=== PATIENT | female | born 1935 | race Two or more races ===

== ENCOUNTER → 2016-10-20 | Outpatient (CLI) | payer MEDICARE, MEDICAID ==
[~2016-10-20] MED LIST: AMLO5TAB2 PO; ANAS1TAB6 PO; ASPI-231 PO; BUME1TAB PO; CHOL1000 PO; CHOL100011 PO; CHOL10009 PO; DEXL60CA3 PO; DIPH2.5T73 PO; GLIP-115 PO; LINA5TAB PO; MEGE40SU PO; METO25TA5 PO; NITR0.2D12 TD; TEMA15CA PO
[2016-10-20 12:09] LABS: Basophils # (auto) 0.1 uL; Basophils % (auto) 0.7 % (0.0-2.0); DEFINITIVE VIEW TRANSMISSION; Eosinophils # (auto) 0.2 uL; Eosinophils % (auto) 2.1 % (0.0-7.0); Hematocrit 35.5 % (36.0-46.0); Hemoglobin 11.3 g/dL (12.2-16.2); Lymphocytes # (auto) 1.7 uL; Lymphocytes % (auto) 17.2 % (10.0-50.0); Mean Corpuscular Hemoglobin 26.3 pg (28.0-32.0); Mean Corpuscular Hgb Conc. 31.7 g/dL (32.0-36.0); Mean Platelet Volume 10.3 fL (7.4-10.4); Monocytes % (auto) 9.8 % (0.0-12.0); Neutrophils # (auto) 6.9 uL; Neutrophils % (auto) 70.2 % (37.0-80.0); Platelet Count (auto) 286 10^3/uL (140-450); White Blood Cell 9.8 10^3/uL (4.4-10.8)
== END | disposition home or self-care (01) ==
LOC: LAB 11:32
PROVIDERS: ATTEND Internal Medicine
DX: D64.89 Other specified anemias (principal); C50.912 Malignant neoplasm of unspecified site of left female breast
CPT/HCPCS: 36415; 85025; 85049

== ENCOUNTER → 2016-11-03 | Outpatient (CLI) | payer MEDICARE, MEDICAID ==
[2016-11-03 14:11] LABS: Basophils # (auto) 0 uL; Basophils % (auto) 0.3 % (0.0-2.0); DEFINITIVE VIEW TRANSMISSION; Eosinophils # (auto) 0.3 uL; Eosinophils % (auto) 2.7 % (0.0-7.0); Hematocrit 30.5 % (36.0-46.0); Hemoglobin 9.6 g/dL (12.2-16.2); Lymphocytes # (auto) 1.7 uL; Lymphocytes % (auto) 17.3 % (10.0-50.0); Mean Corpuscular Hemoglobin 26.4 pg (28.0-32.0); Mean Corpuscular Hgb Conc. 31.4 g/dL (32.0-36.0); Mean Corpuscular Volume 84.2 fL (80.0-100.0); Mean Platelet Volume 10.4 fL (7.4-10.4); Monocytes # (auto) 0.9 uL; Monocytes % (auto) 9.1 % (0.0-12.0); Neutrophils # (auto) 7.1 uL; Neutrophils % (auto) 70.6 % (37.0-80.0); Platelet Count (auto) 227 10^3/uL (140-450); Red Cell Distribution Width 19.8 % (11.6-16.0); White Blood Cell 10.1 10^3/uL (4.4-10.8)
== END | disposition home or self-care (01) ==
LOC: LAB 13:43
PROVIDERS: ATTEND Internal Medicine
DX: D64.89 Other specified anemias (principal); C50.912 Malignant neoplasm of unspecified site of left female breast
CPT/HCPCS: 36415; 85025

== ENCOUNTER → 2016-11-17 | Outpatient (CLI) | payer MEDICARE, MEDICAID ==
[2016-11-17 11:46] LABS: Basophils # (auto) 0 uL; Basophils % (auto) 0.6 % (0.0-2.0); DEFINITIVE VIEW TRANSMISSION; Eosinophils # (auto) 0.3 uL; Eosinophils % (auto) 3.3 % (0.0-7.0); Hematocrit 20.6 % (36.0-46.0); Lymphocytes # (auto) 1.5 uL; Lymphocytes % (auto) 19.2 % (10.0-50.0); Mean Corpuscular Hemoglobin 27.4 pg (28.0-32.0); Mean Corpuscular Hgb Conc. 31.7 g/dL (32.0-36.0); Mean Corpuscular Volume 86.5 fL (80.0-100.0); Mean Platelet Volume 9.3 fL (7.4-10.4); Monocytes # (auto) 0.8 uL; Monocytes % (auto) 10.8 % (0.0-12.0); Neutrophils # (auto) 5.1 uL; Neutrophils % (auto) 66.1 % (37.0-80.0); Platelet Count (auto) 252 10^3/uL (140-450); Red Cell Distribution Width 18.3 % (11.6-16.0); White Blood Cell 7.7 10^3/uL (4.4-10.8)
[2016-11-17 11:51] LABS: Hemoglobin 6.5 g/dL (12.2-16.2)
[2016-11-17 14:56] LABS: Albumin 2.9 g/dL (3.4-5.0); BUN/Creatinine Ratio 27.8; Phosphorus 3.5 mg/dL (2.5-4.90); Potassium 4.9 mmol/L (3.5-5.1)
== END | disposition home or self-care (01) ==
LOC: LAB 09:55
PROVIDERS: ATTEND Internal Medicine
DX: N18.3 Chronic kidney disease, stage 3 (moderate) (principal); D63.1 Anemia in chronic kidney disease; M10.9 Gout, unspecified; R80.9 Proteinuria, unspecified
CPT/HCPCS: 36415; 80069; 82306; 85025

== ENCOUNTER → 2016-11-18 | Outpatient (CLI) | payer MEDICARE, MEDICAID | END | disposition home or self-care (01) | LOC: LAB 11:03 | PROVIDERS: ATTEND Internal Medicine | DX: D64.89 Other specified anemias (principal); C50.912 Malignant neoplasm of unspecified site of left female breast | CPT/HCPCS: 86850; 86900; 86901; 86922 ==

== ENCOUNTER → 2016-11-21 | Day surgery (SDC) | payer MEDICARE, MEDICAID ==
[~2016-11-21] VITALS: Ht 30.5 cm; Wt 0.5 kg
[~2016-11-21] MED LIST changes: +FUROSEMIDE 20 MG/2 ML VIAL IV ONE; +FUROSEMIDE 20 MG/2 ML VIAL ONE
== END | disposition home or self-care (01) ==
LOC: CATH 07:21
PROVIDERS: ATTEND Internal Medicine
DX: D64.9 Anemia, unspecified (principal); I50.9 Heart failure, unspecified; Z90.710 Acquired absence of both cervix and uterus; F41.9 Anxiety disorder, unspecified
CPT/HCPCS: 36430

== ENCOUNTER → 2016-12-01 | Outpatient (CLI) | payer MEDICARE, MEDICAID ==
[~2016-12-01] MED LIST changes: -FUROSEMIDE 20 MG/2 ML VIAL IV ONE; -FUROSEMIDE 20 MG/2 ML VIAL ONE
[2016-12-01 10:01] LABS: Basophils # (auto) 0.1 uL; DEFINITIVE VIEW TRANSMISSION; Eosinophils # (auto) 0 uL; Eosinophils % (auto) 0.3 % (0.0-7.0); Hematocrit 21.5 % (36.0-46.0); Hemoglobin 7.2 g/dL (12.2-16.2); Lymphocytes # (auto) 1.5 uL; Lymphocytes % (auto) 15.6 % (10.0-50.0); Mean Corpuscular Hemoglobin 28.7 pg (28.0-32.0); Mean Corpuscular Hgb Conc. 33.4 g/dL (32.0-36.0); Mean Platelet Volume 10.1 fL (7.4-10.4); Monocytes # (auto) 0.9 uL; Neutrophils # (auto) 6.9 uL; Neutrophils % (auto) 73.1 % (37.0-80.0); Platelet Count (auto) 258 10^3/uL (140-450); Red Cell Distribution Width 16.4 % (11.6-16.0); White Blood Cell 9.4 10^3/uL (4.4-10.8)
[2016-12-01 10:56] LABS: Bilirubin, Total 0.3 mg/dL (0.2-1.0); Calcium 9.2 mg/dL (8.5-10.1); Total Protein 6.5 g/dL (6.4-8.2)
== END | disposition home or self-care (01) ==
LOC: LAB 09:31
PROVIDERS: ATTEND Internal Medicine
DX: D64.9 Anemia, unspecified (principal); C50.912 Malignant neoplasm of unspecified site of left female breast
CPT/HCPCS: 36415; 80053; 83615; 85025

== ENCOUNTER → 2017-01-03 | Outpatient (CLI) | payer MEDICARE, MEDICAID ==
[~2017-01-03] MED LIST changes: -BUME1TAB PO; -CHOL1000 PO; -CHOL100011 PO; -DIPH2.5T73 PO
[2017-01-03 11:56] LABS: Basophils # (auto) 0.1 uL; Basophils % (auto) 0.8 % (0.0-2.0); DEFINITIVE VIEW TRANSMISSION; Eosinophils # (auto) 0.3 uL; Eosinophils % (auto) 4.2 % (0.0-7.0); Lymphocytes # (auto) 1.4 uL; Lymphocytes % (auto) 20.4 % (10.0-50.0); Mean Corpuscular Hemoglobin 28.4 pg (28.0-32.0); Mean Corpuscular Hgb Conc. 33.1 g/dL (32.0-36.0); Mean Corpuscular Volume 85.8 fL (80.0-100.0); Mean Platelet Volume 10.2 fL (7.4-10.4); Monocytes # (auto) 0.7 uL; Monocytes % (auto) 10.4 % (0.0-12.0); Neutrophils # (auto) 4.5 uL; Neutrophils % (auto) 64.2 % (37.0-80.0); Platelet Count (auto) 263 10^3/uL (140-450); Red Cell Distribution Width 15.6 % (11.6-16.0); White Blood Cell 6.9 10^3/uL (4.4-10.8)
[2017-01-03 11:58] LABS: Urine Bilirubin Negative (Negative); Urine Blood Negative /uL (Negative); Urine Color Yellow (Yellow); Urine Glucose TRACE mg/dL (Normal); Urine Ketone Negative (Negative); Urine Nitrite Negative (Negative); Urine RBC <1 /hpf (0 - 4); Urine Squamous Epithelial Cell FEW /hpf (<5); Urine Urobilinogen Normal (Negative); Urine pH 5.5 (5.0-8.0)
[2017-01-03 12:14] LABS: Albumin 2.9 g/dL (3.4-5.0); BUN/Creatinine Ratio 30.3; Bilirubin, Total 0.3 mg/dL (0.2-1.0); Calcium 8.6 mg/dL (8.5-10.1); Potassium 4.2 mmol/L (3.5-5.1); Total Protein 6.8 g/dL (6.4-8.2)
[2017-01-03 14:11] LABS: Hemoglobin 6.6 g/dL (12.2-16.2)
== END | disposition home or self-care (01) ==
LOC: LAB 10:54
DX: E55.9 Vitamin D deficiency, unspecified (principal); E11.21 Type 2 diabetes mellitus with diabetic nephropathy
CPT/HCPCS: 36415; 80053; 80061; 81001; 82043; 82306; 83036; 84443; 85025

== ENCOUNTER → 2017-01-13 | Outpatient (CLI) | payer MEDICARE, MEDICAID ==
[~2017-01-13] MED LIST changes: +BUME1TAB PO; +DIPH2.5T73 PO; +FURO20TA3 PO; +LOSA25TA9 PO
[2017-01-13 13:48] LABS: Basophils # (auto) 0 uL; Basophils % (auto) 0.5 % (0.0-2.0); DEFINITIVE VIEW TRANSMISSION; Eosinophils # (auto) 0.2 uL; Eosinophils % (auto) 3.1 % (0.0-7.0); Hematocrit 19.2 % (36.0-46.0); Lymphocytes # (auto) 1.3 uL; Lymphocytes % (auto) 20.1 % (10.0-50.0); Mean Corpuscular Hemoglobin 29.6 pg (28.0-32.0); Mean Corpuscular Hgb Conc. 33.3 g/dL (32.0-36.0); Mean Corpuscular Volume 88.9 fL (80.0-100.0); Mean Platelet Volume 10.1 fL (7.4-10.4); Monocytes # (auto) 0.7 uL; Monocytes % (auto) 11.1 % (0.0-12.0); Neutrophils # (auto) 4.3 uL; Neutrophils % (auto) 65.2 % (37.0-80.0); Platelet Count (auto) 205 10^3/uL (140-450); Red Cell Distribution Width 17.6 % (11.6-16.0); White Blood Cell 6.6 10^3/uL (4.4-10.8)
[2017-01-13 14:18] LABS: Hemoglobin 6.4 g/dL (12.2-16.2)
[2017-01-13 14:40] LABS: Albumin 2.9 g/dL (3.4-5.0); BUN/Creatinine Ratio 28.4; Bilirubin, Total 0.3 mg/dL (0.2-1.0); Calcium 8.5 mg/dL (8.5-10.1); Total Protein 6.4 g/dL (6.4-8.2)
[2017-01-13 15:03] LABS: Potassium 6.1 mmol/L (3.5-5.1)
== END | disposition home or self-care (01) ==
LOC: LAB 13:20
DX: D64.89 Other specified anemias (principal); C50.912 Malignant neoplasm of unspecified site of left female breast
CPT/HCPCS: 36415; 80053; 83615; 85025

== ENCOUNTER → 2017-01-26 | Outpatient (CLI) | payer MEDICARE, MEDICAID ==
[2017-01-26 13:44] LABS: Basophils # (auto) 0.1 uL; DEFINITIVE VIEW TRANSMISSION; Eosinophils # (auto) 0.1 uL; Eosinophils % (auto) 2.3 % (0.0-7.0); Hematocrit 18.2 % (36.0-46.0); Lymphocytes # (auto) 1.3 uL; Lymphocytes % (auto) 20.1 % (10.0-50.0); Mean Corpuscular Hemoglobin 29.3 pg (28.0-32.0); Mean Corpuscular Volume 88.7 fL (80.0-100.0); Mean Platelet Volume 9.1 fL (7.4-10.4); Monocytes # (auto) 0.7 uL; Monocytes % (auto) 10.5 % (0.0-12.0); Neutrophils # (auto) 4.2 uL; Neutrophils % (auto) 66.1 % (37.0-80.0); Platelet Count (auto) 240 10^3/uL (140-450); Red Cell Distribution Width 18.3 % (11.6-16.0); White Blood Cell 6.4 10^3/uL (4.4-10.8)
[2017-01-26 13:59] LABS: Albumin 2.9 g/dL (3.4-5.0); BUN/Creatinine Ratio 30.9; Bilirubin, Total 0.2 mg/dL (0.2-1.0); Calcium 8.7 mg/dL (8.5-10.1); Potassium 4.7 mmol/L (3.5-5.1); Total Protein 6.4 g/dL (6.4-8.2)
== END | disposition home or self-care (01) ==
LOC: LAB 13:23
PROVIDERS: ATTEND Internal Medicine
DX: D64.89 Other specified anemias (principal); C50.912 Malignant neoplasm of unspecified site of left female breast
CPT/HCPCS: 36415; 80053; 83615; 85025

== ENCOUNTER 2017-07-07 10:38 | Inpatient (IN) | payer MEDICARE, MEDICAID ==
[~2017-07-07] VITALS: Ht 165.1 cm; Wt 82.8 kg
[2017-07-07] VITALS (21 sets, daily range): BP systolic 98–149; BP diastolic 43–68
[~2017-07-07 10:38] MED LIST changes: -NITR0.2D12 TD
[2017-07-07 12:22] LABS: White Blood Cell 7.6 10^3/uL (4.4-10.8)
[2017-07-07 12:24] LABS: Basophils # (auto) 0.1 uL; Basophils % (auto) 1.3 % (0.0-2.0); Eosinophils # (auto) 0.1 uL; Eosinophils % (auto) 0.9 % (0.0-7.0); Lymphocytes # (auto) 0.7 uL; Monocytes # (auto) 0.7 uL; Monocytes % (auto) 9.1 % (0.0-12.0); Neutrophils # (auto) 6.1 uL; Neutrophils % (auto) 79.7 % (37.0-80.0)
[2017-07-07 12:25] LABS: Hemoglobin 5.4 g/dL (12.2-16.2); Mean Corpuscular Hemoglobin 27.3 pg (28.0-32.0); Mean Corpuscular Hgb Conc. 31.6 g/dL (32.0-36.0); Mean Corpuscular Volume 86.4 fL (80.0-100.0); Mean Platelet Volume 8.8 fL (6.9-10.8); Platelet Count (auto) 199 10^3/uL (140-450); Red Cell Distribution Width 21.2 % (11.8-14.3)
[2017-07-07] MEDS ORDERED: ACETAMINOPHEN 500 MG TAB PO ONE (12:30)
[2017-07-07 13:11] LABS: INR 1.02 (0.9-1.15); Partial Thromboplastin Time 26.8 sec (22.64-33.71); Prothrombin Time 11.1 sec (9.37-12.3)
[2017-07-07 13:37] LABS: Albumin 3.1 g/dL (3.4-5.0); BUN/Creatinine Ratio 48.7; Bilirubin, Total 0.2 mg/dL (0.2-1.0); Calcium 8.2 mg/dL (8.5-10.1); Total Protein 6.6 g/dL (6.4-8.2)
[2017-07-07 13:40] LABS: Potassium 5.6 mmol/L (3.5-5.1)
[2017-07-07] MEDS ORDERED: DIPHENOXYLATE W/ATROPINE 2.5 MG TAB PO PRN (13:45)
[2017-07-07] MEDS ORDERED: DEXTROSE (50%) 50ML SYRG IV PRN (13:45)
[2017-07-07] MEDS ORDERED: ACETAMINOPHEN 500 MG TAB PO PRN (13:45)
[2017-07-07] MEDS ORDERED: HYDROcodone-ACET 5/325MG TAB PO PRN (13:45)
[2017-07-07] MEDS ORDERED: MORPHINE SULF INJ 2 MG/ML SYRINGE 1ML IV PRN ×2 (13:45)
[2017-07-07] MEDS ORDERED: NITROGLYCERIN 0.4 MG SL TAB SL PRN (13:45)
[2017-07-07] MEDS ORDERED: LORazepam 0.5 MG TAB PO PRN (13:45)
[2017-07-07] MEDS ORDERED: ALBUTEROL SULF 2.5 MG/0.5ML(0.5%) NEB SOLN NEB PRN (13:45)
[2017-07-07] MEDS ORDERED: FUROSEMIDE 40 MG/4 ML VIAL IV PRN (13:45)
[2017-07-07] MEDS ORDERED: PROMETHAZINE HCL 25 MG/ML 1ML IV PRN (13:45)
[2017-07-07] MEDS ORDERED: PANTOPRAZOLE 40 MG/10 ML VIAL IV ONE (13:45)
[2017-07-07] MEDS ORDERED: LACTULOSE 20Gm/30ML SOLN PO PRN (13:45)
[2017-07-07] MEDS ORDERED: InsuLIN REG 1unit/0.01ml Soln (100units/ml) IV ONE (14:00)
[2017-07-07] MEDS ORDERED: CALCIUM GLUC 4.65meq/50ml D5AE 50 ML IV ONE (14:00)
[2017-07-07] MEDS ORDERED: DEXTROSE (50%) 50ML SYRG IV ONE (14:00)
[2017-07-07] MEDS ORDERED: SODIUM BICARBONATE 8.4 % INJ 50ML VIAL IV ONE (14:00)
[2017-07-07 14:20] LABS: Anisocytosis Slight; Platelet Estimate Adequate
[2017-07-07 14:21] LABS: Ovalocytes FEW; Schistocytes FEW
[2017-07-07 15:12] LABS: Urine Bilirubin Negative (Negative); Urine Blood Negative /uL (Negative); Urine Color Yellow (Yellow); Urine Glucose Normal (Normal); Urine Ketone Negative (Negative); Urine Mucus FEW (None Seen); Urine Nitrite Negative (Negative); Urine RBC None Seen /hpf (0 - 4); Urine Squamous Epithelial Cell FEW /hpf (<5); Urine Urobilinogen Normal (Negative)
[2017-07-07] MEDS ORDERED: FUROSEMIDE 40 MG/4 ML VIAL IV ONE (15:15)
[2017-07-07] MEDS ORDERED: SODIUM POLYSTYRENE SULF 15GM/60ML SUSP PO ONE (15:30)
[2017-07-07] MEDS: ALBUTEROL SULF 2.5 MG/0.5ML(0.5%) NEB SOLN NEB SCH (18:35)
[2017-07-07 20:23] LABS: Hematocrit 21.3 % (36.0-46.0)
[2017-07-07 20:30] LABS: Hemoglobin 6.8 g/dL (12.2-16.2)
[2017-07-07 20:35] LABS: Calcium 8.7 mg/dL (8.5-10.1); Potassium 5.4 mmol/L (3.5-5.1)
[2017-07-07] MEDS: InsuLIN REG 1unit/0.01ml Soln (100units/ml) SC SCH ×2 (21:38→22:00)
[2017-07-07] MEDS: ACCU-CHEK COMFORT CURVE STRIP VI SCH ×2 (21:40→22:00)
[2017-07-07] MEDS: glipiZIDE 5 MG TAB PO SCH (21:40)
[2017-07-07 21:57] LABS: BUN/Creatinine Ratio 45.8; Calcium 8.2 mg/dL (8.5-10.1)
[2017-07-08] VITALS (7 sets, daily range): BP systolic 116–143; BP diastolic 56–97
[2017-07-08 01:04] LABS: Hemoglobin 7.6 g/dL (12.2-16.2)
[2017-07-08 01:05] LABS: Hematocrit 23.6 % (36.0-46.0)
[2017-07-08] MEDS: ALBUTEROL SULF 2.5 MG/0.5ML(0.5%) NEB SOLN NEB SCH ×4 (01:45→18:56)
[2017-07-08] MEDS: ACCU-CHEK COMFORT CURVE STRIP VI SCH ×4 (07:12→22:02)
[2017-07-08] MEDS: glipiZIDE 5 MG TAB PO SCH ×2 (07:12→17:53)
[2017-07-08] MEDS: InsuLIN REG 1unit/0.01ml Soln (100units/ml) SC SCH ×4 (07:12→22:02)
[2017-07-08 08:25] LABS: Basophils # (auto) 0.1 uL; Basophils % (auto) 0.8 % (0.0-2.0); Eosinophils # (auto) 0.1 uL; Eosinophils % (auto) 0.5 % (0.0-7.0); Hematocrit 25.6 % (36.0-46.0); Hemoglobin 8.1 g/dL (12.2-16.2); Lymphocytes # (auto) 0.8 uL; Lymphocytes % (auto) 8.2 % (10.0-50.0); Mean Corpuscular Hemoglobin 27.8 pg (28.0-32.0); Mean Corpuscular Hgb Conc. 31.7 g/dL (32.0-36.0); Mean Corpuscular Volume 87.6 fL (80.0-100.0); Mean Platelet Volume 9.2 fL (6.9-10.8); Monocytes % (auto) 9.6 % (0.0-12.0); Neutrophils # (auto) 8.1 uL; Neutrophils % (auto) 80.9 % (37.0-80.0); Nucleated Red Blood Cells % 0.1 %; Platelet Count (auto) 222 10^3/uL (140-450); Red Cell Distribution Width 18.8 % (11.8-14.3); White Blood Cell 10.1 10^3/uL (4.4-10.8)
[2017-07-08 08:54] LABS: B-Type Natriuretic Peptide 861.78 pg/mL (0-100)
[2017-07-08 08:58] LABS: Albumin 3.4 g/dL (3.4-5.0); BUN/Creatinine Ratio 45.4; Bilirubin, Total 0.3 mg/dL (0.2-1.0); Calcium 8.5 mg/dL (8.5-10.1); Potassium 4.6 mmol/L (3.5-5.1); Total Protein 7.2 g/dL (6.4-8.2)
[2017-07-08 09:22] LABS: Temperature: 23.3 C (20.0-25.0)
[2017-07-08] MEDS: ANASTROZOLE 1 MG PO SCH (10:00)
[2017-07-08] MEDS ORDERED: PATIENTS OWN MEDICATION (Cholecalciferol (Vitamin D3) 1,000 UNIT) PO SCH (10:00)
[2017-07-08] MEDS ORDERED: PATIENTS OWN MEDICATION (Dexlansoprazole (Dexilant) 60 MG) PO SCH (10:00)
[2017-07-08] MEDS ORDERED: BUMETANIDE 1 MG TAB PO SCH (10:00)
[2017-07-08] MEDS ORDERED: LOSARTAN POTASSIUM 25 MG TAB PO SCH (10:00)
[2017-07-08] MEDS ORDERED: FUROSEMIDE 20 MG TAB PO SCH (10:00)
[2017-07-08] MEDS: MEGESTROL ACET 400MG/10ML ORAL SUSP PO SCH (10:19)
[2017-07-08] MEDS: PANTOPRAZOLE 40 MG TAB PO SCH (10:22)
[2017-07-08] MEDS: amLODIPine BESYLATE 5 MG TAB PO SCH (10:23)
[2017-07-08] MEDS: CHOLECALCIFEROL (VITD3) 1,000 UNIT TAB PO SCH (10:23)
[2017-07-08] MEDS: METOPROLOL SUCCINATE XL 50 MG TAB PO SCH (10:23)
[2017-07-08] MEDS: FUROSEMIDE 40 MG/4 ML VIAL IV SCH (10:24)
[2017-07-08] MEDS: TEMAZEPAM 15 MG CAP PO PRN (22:01)
[2017-07-09] MEDS: ALBUTEROL SULF 2.5 MG/0.5ML(0.5%) NEB SOLN NEB SCH ×4 (00:11→20:06)
[2017-07-09 04:00] VITALS: BP 133/70
[2017-07-09] MEDS: InsuLIN REG 1unit/0.01ml Soln (100units/ml) SC SCH ×4 (06:19→21:53)
[2017-07-09] MEDS: glipiZIDE 5 MG TAB PO SCH ×2 (06:19→17:39)
[2017-07-09] MEDS: ACCU-CHEK COMFORT CURVE STRIP VI SCH ×4 (06:19→21:53)
[2017-07-09 08:00] VITALS: BP 120/62
[2017-07-09 08:46] LABS: Basophils # (auto) 0.1 uL; Eosinophils # (auto) 0.2 uL; Hemoglobin 8.1 g/dL (12.2-16.2); Lymphocytes # (auto) 0.7 uL; Lymphocytes % (auto) 7.8 % (10.0-50.0); White Blood Cell 8.9 10^3/uL (4.4-10.8)
[2017-07-09 08:47] LABS: Basophils % (auto) 0.6 % (0.0-2.0); Mean Corpuscular Hemoglobin 28.1 pg (28.0-32.0); Mean Corpuscular Hgb Conc. 32.4 g/dL (32.0-36.0); Mean Corpuscular Volume 86.8 fL (80.0-100.0); Mean Platelet Volume 8.9 fL (6.9-10.8); Monocytes % (auto) 11.3 % (0.0-12.0); Neutrophils # (auto) 6.9 uL; Neutrophils % (auto) 78.3 % (37.0-80.0); Platelet Count (auto) 229 10^3/uL (140-450); Red Cell Distribution Width 18.3 % (11.8-14.3)
[2017-07-09 09:01] LABS: Albumin 3.2 g/dL (3.4-5.0); BUN/Creatinine Ratio 45.7; Calcium 8.7 mg/dL (8.5-10.1); Potassium 4.8 mmol/L (3.5-5.1)
[2017-07-09 09:03] LABS: Bilirubin, Total 0.3 mg/dL (0.2-1.0); Total Protein 6.7 g/dL (6.4-8.2)
[2017-07-09] MEDS: ANASTROZOLE 1 MG PO SCH (10:00)
[2017-07-09] MEDS ORDERED: MILK OF MAGNESIA 30ML SUSP PO ONE (10:15)
[2017-07-09] MEDS: FUROSEMIDE 40 MG/4 ML VIAL IV SCH (10:44)
[2017-07-09] MEDS: MEGESTROL ACET 400MG/10ML ORAL SUSP PO SCH (10:45)
[2017-07-09] MEDS: METOPROLOL SUCCINATE XL 50 MG TAB PO SCH (10:45)
[2017-07-09] MEDS: CHOLECALCIFEROL (VITD3) 1,000 UNIT TAB PO SCH (10:45)
[2017-07-09] MEDS: amLODIPine BESYLATE 5 MG TAB PO SCH (10:46)
[2017-07-09] MEDS: PANTOPRAZOLE 40 MG TAB PO SCH (10:51)
[2017-07-09 12:00] VITALS: BP 112/50
[2017-07-09 14:13] LABS: Hematocrit 23.1 % (36.0-46.0); Hemoglobin 7.5 g/dL (12.2-16.2)
[2017-07-09 16:00] VITALS: BP 143/72
[2017-07-09] MEDS: TEMAZEPAM 15 MG CAP PO PRN (20:31)
[2017-07-09 23:49] VITALS: BP 130/71
[2017-07-10] MEDS: ALBUTEROL SULF 2.5 MG/0.5ML(0.5%) NEB SOLN NEB SCH ×4 (02:01→18:11)
[2017-07-10 03:51] VITALS: BP 135/52
[2017-07-10 05:18] LABS: Eosinophils # (auto) 0.2 uL; Hematocrit 23.6 % (36.0-46.0); Hemoglobin 7.7 g/dL (12.2-16.2); Mean Corpuscular Volume 85.9 fL (80.0-100.0); Mean Platelet Volume 8.8 fL (6.9-10.8); Monocytes # (auto) 1.4 uL; Platelet Count (auto) 237 10^3/uL (140-450); White Blood Cell 9.6 10^3/uL (4.4-10.8)
[2017-07-10 05:21] LABS: Basophils # (auto) 0 uL; Basophils % (auto) 0.5 % (0.0-2.0); Eosinophils % (auto) 2.3 % (0.0-7.0); Lymphocytes % (auto) 10.3 % (10.0-50.0); Mean Corpuscular Hgb Conc. 32.6 g/dL (32.0-36.0); Monocytes % (auto) 14.3 % (0.0-12.0); Neutrophils # (auto) 6.9 uL; Neutrophils % (auto) 72.6 % (37.0-80.0); Nucleated Red Blood Cells % 0.1 %; Red Cell Distribution Width 18.1 % (11.8-14.3)
[2017-07-10 05:47] LABS: Albumin 2.9 g/dL (3.4-5.0); Calcium 8.1 mg/dL (8.5-10.1); Potassium 5.2 mmol/L (3.5-5.1)
[2017-07-10 05:51] LABS: BUN/Creatinine Ratio 46.1; Bilirubin, Total 0.2 mg/dL (0.2-1.0); Total Protein 6.3 g/dL (6.4-8.2)
[2017-07-10] MEDS: InsuLIN REG 1unit/0.01ml Soln (100units/ml) SC SCH ×4 (06:11→22:00)
[2017-07-10] MEDS: ACCU-CHEK COMFORT CURVE STRIP VI SCH ×4 (06:11→22:00)
[2017-07-10] MEDS: glipiZIDE 5 MG TAB PO SCH ×2 (06:12→18:26)
[2017-07-10] MEDS ORDERED: fentaNYL CITRATE 100 MCG/2 ML VL ONE (08:06)
[2017-07-10] MEDS ORDERED: LIDOCAINE VISCOUS 2% 15ML UD ONE (08:06)
[2017-07-10] MEDS ORDERED: SODIUM CHLORIDE LOCK 10 ML ONE (08:06)
[2017-07-10] MEDS ORDERED: MIDAZOLAM HCL 5 MG/ML-1ML VIAL ONE (08:06)
[2017-07-10] MEDS ORDERED: diphenhdrAMINE HCL 50 MG/1 ML VL ONE (08:06)
[2017-07-10] MEDS: ANASTROZOLE 1 MG PO SCH (10:00)
[2017-07-10 12:20] VITALS: BP 122/51
[2017-07-10] MEDS ORDERED: DEXTROSE (50%) 50ML SYRG IV PRN (14:30)
[2017-07-10] MEDS: MEGESTROL ACET 400MG/10ML ORAL SUSP PO SCH (14:50)
[2017-07-10] MEDS: PANTOPRAZOLE 40 MG TAB PO SCH (14:51)
[2017-07-10] MEDS: amLODIPine BESYLATE 5 MG TAB PO SCH (14:51)
[2017-07-10] MEDS: METOPROLOL SUCCINATE XL 50 MG TAB PO SCH (14:52)
[2017-07-10] MEDS: CHOLECALCIFEROL (VITD3) 1,000 UNIT TAB PO SCH (14:52)
[2017-07-10 15:40] VITALS: BP 156/86
[2017-07-10 15:51] VITALS: BP 141/66
[2017-07-10 19:47] VITALS: BP 130/63
[2017-07-11] VITALS: BP 132/64
[2017-07-11] MEDS: TEMAZEPAM 15 MG CAP PO PRN (00:01)
[2017-07-11] MEDS: ALBUTEROL SULF 2.5 MG/0.5ML(0.5%) NEB SOLN NEB SCH ×3 (00:52→12:46)
[2017-07-11 04:00] VITALS: BP 127/75
[2017-07-11 06:01] LABS: Hematocrit 25.2 % (36.0-46.0)
[2017-07-11 06:02] LABS: BUN/Creatinine Ratio 41.2; Calcium 8.5 mg/dL (8.5-10.1); Potassium 5.5 mmol/L (3.5-5.1)
[2017-07-11] MEDS: InsuLIN REG 1unit/0.01ml Soln (100units/ml) SC SCH ×2 (07:00→11:30)
[2017-07-11] MEDS: glipiZIDE 5 MG TAB PO SCH (07:06)
[2017-07-11] MEDS: ACCU-CHEK COMFORT CURVE STRIP VI SCH ×2 (07:14→11:30)
[2017-07-11] MEDS: ANASTROZOLE 1 MG PO SCH (10:00)
[2017-07-11] MEDS: MEGESTROL ACET 400MG/10ML ORAL SUSP PO SCH (10:03)
[2017-07-11] MEDS: PANTOPRAZOLE 40 MG TAB PO SCH (10:03)
[2017-07-11] MEDS: amLODIPine BESYLATE 5 MG TAB PO SCH (10:04)
[2017-07-11] MEDS: CHOLECALCIFEROL (VITD3) 1,000 UNIT TAB PO SCH (10:04)
[2017-07-11] MEDS: METOPROLOL SUCCINATE XL 50 MG TAB PO SCH (10:06)
[2017-07-11] MEDS ORDERED: SODIUM POLYSTYRENE SULF 15GM/60ML SUSP PO ONE (10:30)
[2017-07-11 12:00] VITALS: BP 132/56
[2017-07-11 16:00] VITALS: BP 134/57
[2017-07-11 17:34] VITALS: BP 134/57
== END 2017-07-11 18:23 | disposition home health service (06) | DRG 377 ==
LOC: ER 10:38 → OVERFLOW 10:39 → DOU IN ICU 07-08 04:13
PROVIDERS: ADMIT Internal Medicine; ATTEND Internal Medicine
PROC: 30233N1 Transfusion of Nonautologous Red Blood Cells into Peripheral Vein, Percutaneous Approach (ICD-10-PCS; principal; 2017-07-07)
PROC: 0D568ZZ Destruction of Stomach, Via Natural or Artificial Opening Endoscopic (ICD-10-PCS; 2017-07-10)
DX: K31.811 Angiodysplasia of stomach and duodenum with bleeding (principal); N17.0 Acute kidney failure with tubular necrosis; I13.0 Hypertensive heart and chronic kidney disease with heart failure and stage 1 through stage 4 chronic kidney disease, or unspecified chronic kidney disease; J96.11 Chronic respiratory failure with hypoxia; I50.9 Heart failure, unspecified; D64.9 Anemia, unspecified; E87.5 Hyperkalemia; N18.3 Chronic kidney disease, stage 3 (moderate); I25.10 Atherosclerotic heart disease of native coronary artery without angina pectoris; J45.909 Unspecified asthma, uncomplicated; E11.22 Type 2 diabetes mellitus with diabetic chronic kidney disease; Z99.81 Dependence on supplemental oxygen; Z90.710 Acquired absence of both cervix and uterus; Z90.49 Acquired absence of other specified parts of digestive tract; Z79.82 Long term (current) use of aspirin; Z85.3 Personal history of malignant neoplasm of breast; Z82.49 Family history of ischemic heart disease and other diseases of the circulatory system; Z83.42 Family history of familial hypercholesterolemia; Z82.61 Family history of arthritis
CPT/HCPCS: 36415; 36430; 71020; 80048; 80053; 80061; 81001; 82378; 82550; 82962; 83036; 83735; 83880; 84132; 84443; 84484; 85014; 85018; 85025; 85045; 85610; 85652; 85730; 86141; 86850; 86900; 86901; 86920; 87081; 93005; 94640; 96365; 96375; 99291; C9113; G0378; J0610; J1815; J2250

== ENCOUNTER 2017-09-22 23:50 | Emergency (ER) | payer MEDICARE, MEDICAID ==
[~2017-09-22] VITALS: Ht 165.1 cm; Wt 81.6 kg
[~2017-09-22 23:50] MED LIST changes: -ASPI-231 PO; -BUME1TAB PO; +LOSA100T25 PO; -LOSA25TA9 PO; +TRAM50TA2 PO
[2017-09-23] VITALS (9 sets, daily range): BP systolic 96–144; BP diastolic 40–77
[2017-09-23 06:34] LABS: Basophils # (auto) 0.1 uL; Eosinophils # (auto) 0 uL; Hematocrit 13.1 % (36.0-46.0); Monocytes # (auto) 1.1 uL; Urine Bilirubin Negative (Negative); Urine Blood Negative /uL (Negative); Urine Color Yellow (Yellow); Urine Glucose Normal (Normal); Urine Ketone Negative (Negative); Urine Nitrite Negative (Negative); Urine RBC 1 /hpf (0 - 4); Urine Squamous Epithelial Cell FEW /hpf (<5); Urine Urobilinogen Normal (Negative)
[2017-09-23 06:37] LABS: Eosinophils % (auto) 0.3 % (0.0-7.0); Lymphocytes # (auto) 1.3 uL; Mean Corpuscular Hemoglobin 26.1 pg (28.0-32.0); Mean Corpuscular Hgb Conc. 32.6 g/dL (32.0-36.0); Mean Corpuscular Volume 80.1 fL (80.0-100.0); Mean Platelet Volume 8.9 fL (6.9-10.8); Monocytes % (auto) 10.5 % (0.0-12.0); Neutrophils # (auto) 7.6 uL; Neutrophils % (auto) 75.2 % (37.0-80.0); Nucleated Red Blood Cells % 0.1 %; Platelet Count (auto) 309 10^3/uL (140-450); Red Cell Distribution Width 15.6 % (11.8-14.3); White Blood Cell 10.1 10^3/uL (4.4-10.8)
[2017-09-23 06:41] LABS: Hemoglobin 4.3 g/dL (12.2-16.2)
[2017-09-23 06:49] LABS: Albumin 3.2 g/dL (3.4-5.0); BUN/Creatinine Ratio 39.6; Calcium 8.7 mg/dL (8.5-10.1); Potassium 4.6 mmol/L (3.5-5.1)
[2017-09-23 06:52] LABS: Bilirubin, Total 0.2 mg/dL (0.2-1.0); Total Protein 7.9 g/dL (6.4-8.2)
[2017-09-23] MEDS ORDERED: SODIUM CHLORIDE 0.9% 1,000 ML IV ONE (07:40)
[2017-09-23] MEDS ORDERED: cefTRIAXone 1GM/10ml IVPUSH 10 ML IV ONE (07:45)
[2017-09-23 07:56] LABS: Partial Thromboplastin Time 23.8 sec (22.64-33.71); Prothrombin Time 10.9 sec (9.37-12.3)
[2017-09-23] MEDS ORDERED: SPIRONOLACTONE 25 MG TAB PO ONE (12:30)
[2017-09-23] MEDS ORDERED: FUROSEMIDE 40 MG/4 ML VIAL IV ONE (12:30)
[2017-09-23] MEDS ORDERED: DIPHENOXYLATE W/ATROPINE 2.5 MG TAB PO PRN (13:15)
[2017-09-23] MEDS ORDERED: SODIUM CHLORIDE 0.9% 1,000 ML IV SCH (13:20)
[2017-09-23] MEDS ORDERED: ACETAMINOPHEN 325 MG TAB PO PRN (13:30)
[2017-09-23] MEDS ORDERED: NITROGLYCERIN 0.4 MG SL TAB SL PRN (13:30)
[2017-09-23] MEDS ORDERED: DOCUSATE SOD 100 MG CAP PO PRN (13:30)
[2017-09-23] MEDS ORDERED: HYDROcodone-ACET 5/325MG TAB PO PRN (13:30)
[2017-09-23] MEDS ORDERED: TEMAZEPAM 15 MG CAP PO PRN (13:30)
[2017-09-23] MEDS ORDERED: DEXTROSE (50%) 50ML SYRG IV PRN (13:30)
[2017-09-23] MEDS ORDERED: MORPHINE SULF INJ 2 MG/ML SYRINGE 1ML IV PRN ×2 (13:30)
[2017-09-23] MEDS ORDERED: ONDANSETRON HCL 4 MG/2 ML VIAL IV PRN (13:30)
[2017-09-23] MEDS ORDERED: FAMOTIDINE 20 MG TAB PO SCH (14:00)
[2017-09-23] MEDS ORDERED: InsuLIN REG 1unit/0.01ml Soln (100units/ml) SC SCH (17:00)
[2017-09-23] MEDS ORDERED: ACCU-CHEK COMFORT CURVE STRIP VI SCH (17:00)
[2017-09-23] MEDS ORDERED: glipiZIDE 5 MG TAB PO SCH (18:00)
[2017-09-23] MEDS ORDERED: Boost Glucose Control 8 Ounces PO SCH (18:00)
[2017-09-24] MEDS ORDERED: ANASTROZOLE 1MG PO SCH (10:00)
[2017-09-24] MEDS ORDERED: FUROSEMIDE 20 MG TAB PO SCH (10:00)
[2017-09-24] MEDS ORDERED: CHOLECALCIFEROL (VITD3) 1,000 UNIT TAB PO SCH (10:00)
[2017-09-24] MEDS ORDERED: MEGESTROL ACETATE 20 MG TAB PO SCH (10:00)
[2017-09-24] MEDS ORDERED: TRADJENTA 5MG PO SCH (10:00)
[2017-09-24] MEDS ORDERED: amLODIPine BESYLATE 5 MG TAB PO SCH (10:00)
[2017-09-24] MEDS ORDERED: DEXILANT 60MG PO SCH (10:00)
[2017-09-24] MEDS ORDERED: MULTIPLE VITAMIN TAB PO SCH (10:00)
[2017-09-24] MEDS ORDERED: METOPROLOL TARTRATE 25 MG TAB PO SCH (10:00)
== END 2017-09-23 16:09 | disposition left against medical advice (07) ==
LOC: ER 23:50
DX: D64.9 Anemia, unspecified (principal); E11.65 Type 2 diabetes mellitus with hyperglycemia; N39.0 Urinary tract infection, site not specified; N19 Unspecified kidney failure; J81.1 Chronic pulmonary edema; J90 Pleural effusion, not elsewhere classified; J45.909 Unspecified asthma, uncomplicated; I25.10 Atherosclerotic heart disease of native coronary artery without angina pectoris; I11.0 Hypertensive heart disease with heart failure; I50.9 Heart failure, unspecified; Z85.3 Personal history of malignant neoplasm of breast; Z90.710 Acquired absence of both cervix and uterus; Z90.49 Acquired absence of other specified parts of digestive tract
CPT/HCPCS: 36415; 71010; 80053; 81001; 83036; 85025; 85610; 85730; 86850; 86900; 86901; 86920; 93005; 96361; 96374; 96375; 99285; J1940; P9016

== ENCOUNTER 2017-10-05 19:50 | Emergency (ER) | payer MEDICARE, MEDICAID ==
[~2017-10-05] VITALS: Ht 165.1 cm; Wt 82.6 kg
[2017-10-05 21:06] LABS: Basophils # (auto) 0.1 uL; Eosinophils # (auto) 0.1 uL; Hematocrit 17.5 % (36.0-46.0); Lymphocytes # (auto) 1.3 uL; Monocytes # (auto) 0.6 uL
[2017-10-05 21:08] LABS: Basophils % (auto) 1.1 % (0.0-2.0); Eosinophils % (auto) 0.8 % (0.0-7.0); Lymphocytes % (auto) 16.1 % (10.0-50.0); Mean Corpuscular Hemoglobin 27.4 pg (28.0-32.0); Mean Corpuscular Hgb Conc. 32.4 g/dL (32.0-36.0); Mean Corpuscular Volume 84.6 fL (80.0-100.0); Monocytes % (auto) 7.6 % (0.0-12.0); Neutrophils # (auto) 5.9 uL; Neutrophils % (auto) 74.4 % (37.0-80.0); Platelet Count (auto) 293 10^3/uL (140-450); Red Blood Cells 2.07 10^6/uL (4.0-5.20); Red Cell Distribution Width 17.5 % (11.8-14.3); White Blood Cell 7.9 10^3/uL (4.4-10.8)
[2017-10-05 21:13] LABS: Hemoglobin 5.7 g/dL (12.2-16.2)
[2017-10-05 21:26] LABS: Albumin 3.2 g/dL (3.4-5.0); Anion Gap 13 (5-15); Calcium 8.7 mg/dL (8.5-10.1); Carbon Dioxide 19 mmol/L (21-32); Chloride 107 mmol/L (98-107); Glucose 193 mg/dL (74-106); Potassium 4.1 mmol/L (3.5-5.1); Sodium 139 mmol/L (136-145)
[2017-10-05 21:29] LABS: Alanine Aminotransferase 17 U/L (13-56); Aspartate Aminotransferase 18 U/L (15-37); BUN/Creatinine Ratio 48.4; GFR African American 24 mL/min; GFR Non-African American 20 mL/min
[2017-10-05 21:32] LABS: Alkaline Phosphatase 93 U/L (45-117); Bilirubin, Total 0.2 mg/dL (0.2-1.0); Total Protein 7.6 g/dL (6.4-8.2)
[2017-10-05 21:58] LABS: Blood Urea Nitrogen 118 mg/dL (7-18)
[2017-10-05] MEDS ORDERED: ACETAMINOPHEN 500 MG TAB PO ONE (23:00)
[2017-10-06 00:15] VITALS: BP 123/60
[2017-10-06 00:30] VITALS: BP 104/55
[2017-10-06] MEDS ORDERED: ACETAMINOPHEN 500 MG TAB PO ONE (01:00)
[2017-10-06 02:07] VITALS: BP 106/72
[2017-10-06] MEDS ORDERED: FUROSEMIDE 20 MG/2 ML VIAL IV ONE (02:30)
[2017-10-06 03:30] VITALS: BP 123/36
== END 2017-10-06 04:25 | disposition home or self-care (01) ==
LOC: ER 19:50
DX: D64.9 Anemia, unspecified (principal); E11.65 Type 2 diabetes mellitus with hyperglycemia; N17.9 Acute kidney failure, unspecified; C50.912 Malignant neoplasm of unspecified site of left female breast; I25.10 Atherosclerotic heart disease of native coronary artery without angina pectoris; J45.909 Unspecified asthma, uncomplicated; E11.22 Type 2 diabetes mellitus with diabetic chronic kidney disease; I13.0 Hypertensive heart and chronic kidney disease with heart failure and stage 1 through stage 4 chronic kidney disease, or unspecified chronic kidney disease; I50.33 Acute on chronic diastolic (congestive) heart failure; N18.4 Chronic kidney disease, stage 4 (severe); Z90.49 Acquired absence of other specified parts of digestive tract; Z79.899 Other long term (current) drug therapy; Z90.710 Acquired absence of both cervix and uterus; R42 Dizziness and giddiness; K21.9 Gastro-esophageal reflux disease without esophagitis; Z85.3 Personal history of malignant neoplasm of breast
CPT/HCPCS: 36415; 36430; 70450; 80053; 83880; 84484; 85025; 86850; 86900; 86901; 86920; 93005; 94761; 99285; P9016

== ENCOUNTER 2017-10-07 08:14 | Inpatient (IN) | payer MEDICARE, MEDICAID ==
[~2017-10-07] VITALS: Ht 165.1 cm; Wt 73.4 kg
[2017-10-07] VITALS (10 sets, daily range): BP systolic 113–150; BP diastolic 51–79
[2017-10-07 10:15] LABS: Basophils # (auto) 0.1 uL; Eosinophils # (auto) 0.1 uL; Hemoglobin 8.4 g/dL (12.2-16.2); Lymphocytes # (auto) 0.8 uL; Lymphocytes % (auto) 8.2 % (10.0-50.0); Neutrophils # (auto) 7.8 uL
[2017-10-07 10:18] LABS: Basophils % (auto) 1.1 % (0.0-2.0); Eosinophils % (auto) 0.6 % (0.0-7.0); Hematocrit 25.2 % (36.0-46.0); Mean Corpuscular Hemoglobin 28.2 pg (28.0-32.0); Mean Corpuscular Hgb Conc. 33.2 g/dL (32.0-36.0); Mean Corpuscular Volume 84.9 fL (80.0-100.0); Monocytes # (auto) 0.8 uL; Monocytes % (auto) 8.7 % (0.0-12.0); Neutrophils % (auto) 81.4 % (37.0-80.0); Platelet Count (auto) 292 10^3/uL (140-450); Red Blood Cells 2.97 10^6/uL (4.0-5.20); Red Cell Distribution Width 16.2 % (11.8-14.3); White Blood Cell 9.5 10^3/uL (4.4-10.8)
[2017-10-07 10:54] LABS: Albumin 3.3 g/dL (3.4-5.0); BUN/Creatinine Ratio 48.6; Bilirubin, Total 0.4 mg/dL (0.2-1.0); Calcium 8.8 mg/dL (8.5-10.1); Magnesium 2.3 mg/dL (1.6-2.6); Potassium 4.6 mmol/L (3.5-5.1); Total Protein 7.6 g/dL (6.4-8.2)
[2017-10-07] MEDS ORDERED: cefTRIAXone 1GM/10ml IVPUSH 10 ML IV ONE (11:15)
[2017-10-07 13:40] LABS: Urine Bacteria FEW /hpf (None Seen); Urine Blood Negative /uL (Negative); Urine Specific Gravity 1.012 (1.001-1.035); Urine WBC 5 /hpf (0 - 5)
[2017-10-07] MEDS ORDERED: DOCUSATE SOD 100 MG CAP PO PRN (15:00)
[2017-10-07] MEDS ORDERED: MORPHINE SULF INJ 2 MG/ML SYRINGE 1ML IV PRN (15:00)
[2017-10-07] MEDS ORDERED: ONDANSETRON HCL 4 MG/2 ML VIAL IV PRN (15:00)
[2017-10-07] MEDS ORDERED: ACETAMINOPHEN 325 MG TAB PO PRN (15:00)
[2017-10-07] MEDS ORDERED: cloNIDine HCL 0.1 MG TAB PO PRN (15:00)
[2017-10-07] MEDS ORDERED: TEMAZEPAM 15 MG CAP PO PRN (15:00)
[2017-10-07] MEDS ORDERED: AZITHROMYCIN 500MG/ 250ML 250 ML IV ONE (15:00)
[2017-10-07] MEDS ORDERED: traMADol HCL 50 MG TAB PO PRN (15:00)
[2017-10-07] MEDS ORDERED: DEXTROSE (50%) 50ML SYRG IV PRN (15:15)
[2017-10-07] MEDS ORDERED: PANTOPRAZOLE 40 MG TAB PO ONE (15:15)
[2017-10-07] MEDS: ACCU-CHEK COMFORT CURVE STRIP VI SCH ×2 (18:08→21:39)
[2017-10-07] MEDS: InsuLIN REG 1unit/0.01ml Soln (100units/ml) SC SCH ×2 (18:08→21:39)
[2017-10-07] MEDS: SODIUM CHLOR 0.9% PF (SALINE LOCK) 10ML VIAL IV SCH (21:38)
[2017-10-07] MEDS: ASCORBIC ACID 500 MG TAB PO SCH (21:46)
[2017-10-07] MEDS: MEGESTROL ACETATE 20 MG TAB PO SCH (21:47)
[2017-10-07] MEDS ORDERED: FAMOTIDINE 20 MG TAB PO SCH (22:00)
[2017-10-08] VITALS (10 sets, daily range): BP systolic 113–154; BP diastolic 7–79
[2017-10-08] MEDS: ALBUTEROL SULF 2.5 MG/0.5ML(0.5%) NEB SOLN NEB SCH ×4 (01:05→19:47)
[2017-10-08] MEDS: IPRATROPIUM BROM 0.5 MG/2.5ML INH SOL NEB SCH ×4 (01:05→19:47)
[2017-10-08] MEDS: SODIUM CHLOR 0.9% PF (SALINE LOCK) 10ML VIAL IV SCH ×3 (05:25→22:42)
[2017-10-08] MEDS: ACCU-CHEK COMFORT CURVE STRIP VI SCH ×5 (06:07→23:43)
[2017-10-08] MEDS: InsuLIN REG 1unit/0.01ml Soln (100units/ml) SC SCH ×5 (06:07→23:42)
[2017-10-08 07:17] LABS: Basophils # (auto) 0.1 uL; Basophils % (auto) 1.1 % (0.0-2.0); Eosinophils # (auto) 0.1 uL; Eosinophils % (auto) 1.9 % (0.0-7.0); Hemoglobin 9.6 g/dL (12.2-16.2); Lymphocytes % (auto) 12.7 % (10.0-50.0); Mean Corpuscular Hemoglobin 29.3 pg (28.0-32.0); Mean Corpuscular Hgb Conc. 34.2 g/dL (32.0-36.0); Mean Corpuscular Volume 85.6 fL (80.0-100.0); Monocytes # (auto) 0.7 uL; Neutrophils # (auto) 5.9 uL; Neutrophils % (auto) 75.3 % (37.0-80.0); Platelet Count (auto) 245 10^3/uL (140-450); Red Blood Cells 3.27 10^6/uL (4.0-5.20); Red Cell Distribution Width 15.2 % (11.8-14.3); White Blood Cell 7.8 10^3/uL (4.4-10.8)
[2017-10-08 07:25] LABS: Calcium 8.7 mg/dL (8.5-10.1); Potassium 3.8 mmol/L (3.5-5.1)
[2017-10-08 07:33] LABS: Bilirubin, Total 0.6 mg/dL (0.2-1.0); Total Protein 6.8 g/dL (6.4-8.2)
[2017-10-08] MEDS: cefTRIAXone 1GM/10ml IVPUSH 10 ML IV SCH (09:01)
[2017-10-08] MEDS ORDERED: DOXYCYCLINE HYC 100MG/250ML 250 ML IV SCH (09:30)
[2017-10-08] MEDS ORDERED: PATIENTS OWN MEDICATION PO SCH (10:00)
[2017-10-08] MEDS ORDERED: AZITHROMYCIN 500MG/ 250ML 250 ML IV SCH (10:00)
[2017-10-08] MEDS: CHOLECALCIFEROL (VITD3) 1,000 UNIT TAB PO SCH (11:10)
[2017-10-08] MEDS: MULTIPLE VITAMIN TAB PO SCH (11:10)
[2017-10-08] MEDS: MEGESTROL ACETATE 20 MG TAB PO SCH ×2 (11:10→21:33)
[2017-10-08] MEDS: HCTZ 25 MG TAB PO SCH (11:11)
[2017-10-08] MEDS: PANTOPRAZOLE 40 MG TAB PO SCH (11:11)
[2017-10-08] MEDS: METOPROLOL SUCCINATE XL 50 MG TAB PO SCH (11:12)
[2017-10-08] MEDS: amLODIPine BESYLATE 5 MG TAB PO SCH (11:13)
[2017-10-08] MEDS: ASCORBIC ACID 500 MG TAB PO SCH ×2 (11:13→21:34)
[2017-10-08] MEDS: FUROSEMIDE 20 MG TAB PO SCH (11:13)
[2017-10-08] MEDS: DOXYCYCLINE HYC 100MG/250ML 250 ML IV SCH ×2 (11:14→21:34)
[2017-10-08] MEDS: LOSARTAN POTASSIUM 50 MG TAB PO SCH (11:24)
[2017-10-08] MEDS: Boost Glucose Control 8 Ounces PO SCH ×2 (15:41→19:13)
[2017-10-09] MEDS: ALBUTEROL SULF 2.5 MG/0.5ML(0.5%) NEB SOLN NEB SCH ×3 (00:28→12:11)
[2017-10-09] MEDS: IPRATROPIUM BROM 0.5 MG/2.5ML INH SOL NEB SCH ×3 (00:28→12:11)
[2017-10-09 05:00] VITALS: BP 135/67
[2017-10-09] MEDS: SODIUM CHLOR 0.9% PF (SALINE LOCK) 10ML VIAL IV SCH ×2 (06:15→14:00)
[2017-10-09] MEDS: InsuLIN REG 1unit/0.01ml Soln (100units/ml) SC SCH (06:16)
[2017-10-09] MEDS: ACCU-CHEK COMFORT CURVE STRIP VI SCH (06:17)
[2017-10-09 06:40] LABS: Basophils # (auto) 0.1 uL; Basophils % (auto) 0.5 % (0.0-2.0); Eosinophils # (auto) 0.2 uL; Eosinophils % (auto) 2.1 % (0.0-7.0); Hematocrit 28.7 % (36.0-46.0); Hemoglobin 9.5 g/dL (12.2-16.2); Lymphocytes # (auto) 1.1 uL; Lymphocytes % (auto) 9.5 % (10.0-50.0); Mean Corpuscular Hemoglobin 28.6 pg (28.0-32.0); Mean Corpuscular Hgb Conc. 33.2 g/dL (32.0-36.0); Mean Corpuscular Volume 86.1 fL (80.0-100.0); Monocytes % (auto) 9.2 % (0.0-12.0); Neutrophils % (auto) 78.7 % (37.0-80.0); Platelet Count (auto) 276 10^3/uL (140-450); Red Blood Cells 3.34 10^6/uL (4.0-5.20); Red Cell Distribution Width 15.6 % (11.8-14.3); White Blood Cell 11.5 10^3/uL (4.4-10.8)
[2017-10-09 06:55] LABS: Albumin 3.1 g/dL (3.4-5.0); BUN/Creatinine Ratio 43.2; Bilirubin, Total 0.5 mg/dL (0.2-1.0); Potassium 4.1 mmol/L (3.5-5.1); Total Protein 6.9 g/dL (6.4-8.2)
[2017-10-09 08:00] VITALS: BP 123/71
[2017-10-09] MEDS: Boost Glucose Control 8 Ounces PO SCH (08:00)
[2017-10-09 08:05] VITALS: BP 123/71
[2017-10-09] MEDS: DOXYCYCLINE HYC 100MG/250ML 250 ML IV SCH (10:29)
[2017-10-09] MEDS: cefTRIAXone 1GM/10ml IVPUSH 10 ML IV SCH (10:30)
[2017-10-09] MEDS: METOPROLOL SUCCINATE XL 50 MG TAB PO SCH (10:31)
[2017-10-09] MEDS: HCTZ 25 MG TAB PO SCH (10:32)
[2017-10-09] MEDS: FUROSEMIDE 20 MG TAB PO SCH (10:32)
[2017-10-09] MEDS: CHOLECALCIFEROL (VITD3) 1,000 UNIT TAB PO SCH (10:33)
[2017-10-09] MEDS: ASCORBIC ACID 500 MG TAB PO SCH (10:33)
[2017-10-09] MEDS: LOSARTAN POTASSIUM 50 MG TAB PO SCH (10:33)
[2017-10-09] MEDS: MEGESTROL ACETATE 20 MG TAB PO SCH (10:34)
[2017-10-09] MEDS: MULTIPLE VITAMIN TAB PO SCH (10:34)
[2017-10-09] MEDS: PANTOPRAZOLE 40 MG TAB PO SCH (10:35)
[2017-10-09] MEDS: amLODIPine BESYLATE 5 MG TAB PO SCH (10:35)
[2017-10-09 11:46] VITALS: BP 150/68
== END 2017-10-09 15:00 | disposition home or self-care (01) | DRG 291 ==
LOC: ER 08:14 → OVERFLOW 08:15 → EAST 20:15
PROVIDERS: ADMIT Internal Medicine; ATTEND Internal Medicine
PROC: 30233N1 Transfusion of Nonautologous Red Blood Cells into Peripheral Vein, Percutaneous Approach (ICD-10-PCS; principal; 2017-10-07)
DX: I13.0 Hypertensive heart and chronic kidney disease with heart failure and stage 1 through stage 4 chronic kidney disease, or unspecified chronic kidney disease (principal); J18.1 Lobar pneumonia, unspecified organism; E11.22 Type 2 diabetes mellitus with diabetic chronic kidney disease; N18.4 Chronic kidney disease, stage 4 (severe); J44.0 Chronic obstructive pulmonary disease with (acute) lower respiratory infection; Z99.81 Dependence on supplemental oxygen; E44.1 Mild protein-calorie malnutrition; I50.43 Acute on chronic combined systolic (congestive) and diastolic (congestive) heart failure; N39.0 Urinary tract infection, site not specified; D63.8 Anemia in other chronic diseases classified elsewhere; F32.9 Major depressive disorder, single episode, unspecified; F41.9 Anxiety disorder, unspecified; J45.909 Unspecified asthma, uncomplicated; J06.9 Acute upper respiratory infection, unspecified; I25.10 Atherosclerotic heart disease of native coronary artery without angina pectoris; Z68.26 Body mass index [BMI] 26.0-26.9, adult; Z90.12 Acquired absence of left breast and nipple; Z85.3 Personal history of malignant neoplasm of breast; Z90.710 Acquired absence of both cervix and uterus; Z90.49 Acquired absence of other specified parts of digestive tract
CPT/HCPCS: 36415; 36430; 70450; 71046; 80053; 81001; 82962; 83036; 83605; 83735; 83880; 84484; 85025; 86850; 86900; 86901; 86920; 87040; 87086; 93005; 94640; 94761; 96365; 96375; J1815; J3490

== ENCOUNTER → 2017-10-24 | Outpatient (CLI) | payer MEDICARE, MEDICAID ==
[2017-10-24 12:10] LABS: Basophils # (auto) 0.1 uL; Basophils % (auto) 0.7 % (0.0-2.0); Eosinophils # (auto) 0.2 uL; Hemoglobin 7.3 g/dL (12.2-16.2); Lymphocytes # (auto) 1.3 uL; Monocytes # (auto) 0.8 uL
[2017-10-24 12:13] LABS: Eosinophils % (auto) 2.2 % (0.0-7.0); Hematocrit 21.4 % (36.0-46.0); Lymphocytes % (auto) 15.6 % (10.0-50.0); Mean Corpuscular Hemoglobin 29.2 pg (28.0-32.0); Mean Corpuscular Hgb Conc. 34.2 g/dL (32.0-36.0); Mean Corpuscular Volume 85.5 fL (80.0-100.0); Monocytes % (auto) 9.7 % (0.0-12.0); Neutrophils # (auto) 5.8 uL; Neutrophils % (auto) 71.8 % (37.0-80.0); Nucleated Red Blood Cells % 0.1 %; Platelet Count (auto) 211 10^3/uL (140-450); Red Cell Distribution Width 15.8 % (11.8-14.3); White Blood Cell 8.1 10^3/uL (4.4-10.8)
[2017-10-24 12:25] LABS: BUN/Creatinine Ratio 51.5; Potassium 4.3 mmol/L (3.5-5.1)
[2017-10-24 12:27] LABS: Total Protein 6.8 g/dL (6.4-8.2)
[2017-10-24 12:34] LABS: Bilirubin, Total 0.1 mg/dL (0.2-1.0)
[2017-10-24 13:07] LABS: Urine Bacteria NONE SEEN /hpf (None Seen); Urine Blood Negative /uL (Negative); Urine Mucus FEW (None Seen); Urine Specific Gravity 1.012 (1.001-1.035); Urine WBC 3 /hpf (0 - 5)
== END | disposition home or self-care (01) ==
LOC: LAB 11:48
PROVIDERS: ATTEND Family Medicine
DX: E11.21 Type 2 diabetes mellitus with diabetic nephropathy (principal); R13.0 Aphagia
CPT/HCPCS: 36415; 80053; 81001; 83036; 84443; 85025

== ENCOUNTER 2017-11-09 20:52 | Emergency (ER) | payer MEDICARE, MEDICAID ==
[~2017-11-09] VITALS: Ht 157.5 cm; Wt 82.6 kg
[2017-11-09 22:07] LABS: Basophils % (auto) 0.4 % (0.0-2.0); Eosinophils % (auto) 0.3 % (0.0-7.0); Lymphocytes % (auto) 11.3 % (10.0-50.0); Monocytes % (auto) 10.1 % (0.0-12.0); Neutrophils # (auto) 6.9 uL; Neutrophils % (auto) 77.9 % (37.0-80.0); Nucleated Red Blood Cells % 1.1 %; White Blood Cell 8.9 10^3/uL (4.4-10.8)
[2017-11-09 22:08] LABS: Basophils # (auto) 0 uL; Eosinophils # (auto) 0 uL; Mean Corpuscular Volume 89.3 fL (80.0-100.0); Monocytes # (auto) 0.9 uL; Red Blood Cells 1.45 10^6/uL (4.0-5.20)
[2017-11-09 22:09] LABS: BUN/Creatinine Ratio 52.9; Bilirubin, Total 0.2 mg/dL (0.2-1.0); Calcium 8.5 mg/dL (8.5-10.1); Mean Corpuscular Hemoglobin 28.6 pg (28.0-32.0); Mean Corpuscular Hgb Conc. 32.1 g/dL (32.0-36.0); Platelet Count (auto) 254 10^3/uL (140-450); Potassium 4.4 mmol/L (3.5-5.1); Red Cell Distribution Width 17.4 % (11.8-14.3); Total Protein 6.8 g/dL (6.4-8.2)
[2017-11-09 22:11] LABS: Hemoglobin 4.2 g/dL (12.2-16.2)
[2017-11-09 22:39] LABS: INR 0.98 (0.9-1.15); Partial Thromboplastin Time 25.7 sec (22.64-33.71); Prothrombin Time 10.7 sec (9.37-12.3)
[2017-11-10] VITALS (20 sets, daily range): BP systolic 111–150; BP diastolic 44–68
[2017-11-10 00:33] LABS: Urine Bacteria NONE SEEN /hpf (None Seen); Urine Blood Negative /uL (Negative); Urine Hyaline Cast FEW /lpf (0 - 2); Urine WBC 9 /hpf (0 - 5)
[2017-11-10] MEDS ORDERED: FUROSEMIDE 20 MG/2 ML VIAL IV ONE (06:00)
== END 2017-11-10 14:03 | disposition home or self-care (01) ==
LOC: ER 20:52
DX: D64.9 Anemia, unspecified (principal); I13.0 Hypertensive heart and chronic kidney disease with heart failure and stage 1 through stage 4 chronic kidney disease, or unspecified chronic kidney disease; E11.22 Type 2 diabetes mellitus with diabetic chronic kidney disease; N18.9 Chronic kidney disease, unspecified; I50.9 Heart failure, unspecified; J45.909 Unspecified asthma, uncomplicated; Z90.49 Acquired absence of other specified parts of digestive tract
CPT/HCPCS: 36415; 36430; 80053; 81001; 83880; 84484; 85025; 85610; 85730; 86850; 86900; 86901; 86920; 93005; 96374; 99285; J1940; J7030; P9016

== ENCOUNTER → 2017-12-07 | Outpatient (CLI) | payer MEDICARE, MEDICAID ==
[2017-12-07 12:19] LABS: Eosinophils # (auto) 0.1 uL; Lymphocytes # (auto) 0.6 uL; Red Blood Cells 1.87 10^6/uL (4.0-5.20); White Blood Cell 5.9 10^3/uL (4.4-10.8)
[2017-12-07 12:23] LABS: Basophils # (auto) 0.1 uL; Basophils % (auto) 0.9 % (0.0-2.0); Lymphocytes % (auto) 10.4 % (10.0-50.0); Mean Corpuscular Hgb Conc. 31.1 g/dL (32.0-36.0); Mean Corpuscular Volume 80.2 fL (80.0-100.0); Monocytes # (auto) 0.7 uL; Monocytes % (auto) 11.6 % (0.0-12.0); Neutrophils # (auto) 4.5 uL; Neutrophils % (auto) 76.1 % (37.0-80.0); Nucleated Red Blood Cells % 0.9 %; Platelet Count (auto) 293 10^3/uL (140-450); Red Cell Distribution Width 16.7 % (11.8-14.3)
[2017-12-07 13:08] LABS: BUN/Creatinine Ratio 36.2; Calcium 8.5 mg/dL (8.5-10.1); Potassium 4.5 mmol/L (3.5-5.1)
[2017-12-07 13:44] LABS: Hemoglobin 4.7 g/dL (12.2-16.2)
== END | disposition home or self-care (01) ==
LOC: LAB 11:50
PROVIDERS: ATTEND Family Medicine
DX: I13.0 Hypertensive heart and chronic kidney disease with heart failure and stage 1 through stage 4 chronic kidney disease, or unspecified chronic kidney disease (principal); I50.9 Heart failure, unspecified; N18.4 Chronic kidney disease, stage 4 (severe)
CPT/HCPCS: 36415; 80048; 85025

== ENCOUNTER 2017-12-08 23:18 | Inpatient (IN) | payer MEDICARE, MEDICAID ==
[~2017-12-08] VITALS: Ht 195.6 cm; Wt 64.4 kg
[2017-12-09] VITALS (18 sets, daily range): BP systolic 118–161; BP diastolic 59–94
[2017-12-09 00:21] LABS: Basophils # (auto) 0.1 uL; Eosinophils # (auto) 0 uL; Eosinophils % (auto) 0.7 % (0.0-7.0); Hematocrit 13.4 % (36.0-46.0); Lymphocytes # (auto) 0.5 uL; Lymphocytes % (auto) 9.2 % (10.0-50.0); Mean Corpuscular Hemoglobin 24.6 pg (28.0-32.0); Mean Corpuscular Hgb Conc. 30.9 g/dL (32.0-36.0); Mean Corpuscular Volume 79.5 fL (80.0-100.0); Monocytes # (auto) 0.7 uL; Monocytes % (auto) 12.1 % (0.0-12.0); Neutrophils # (auto) 4.3 uL; Platelet Count (auto) 255 10^3/uL (140-450); Red Blood Cells 1.68 10^6/uL (4.0-5.20); Red Cell Distribution Width 17.5 % (11.8-14.3); White Blood Cell 5.5 10^3/uL (4.4-10.8)
[2017-12-09 00:22] LABS: Nucleated Red Blood Cells % 6.4 %
[2017-12-09 00:23] LABS: Hemoglobin 4.1 g/dL (12.2-16.2)
[2017-12-09 00:33] LABS: INR 1.01 (0.9-1.15); Partial Thromboplastin Time 26.7 sec (22.64-33.71)
[2017-12-09 00:37] LABS: Albumin 2.9 g/dL (3.4-5.0); BUN/Creatinine Ratio 33.2
[2017-12-09 00:40] LABS: Bilirubin, Total 0.2 mg/dL (0.2-1.0); Total Protein 6.6 g/dL (6.4-8.2)
[2017-12-09 00:42] LABS: Potassium 5.6 mmol/L (3.5-5.1)
[2017-12-09] MEDS ORDERED: SODIUM POLYSTYRENE SULF 15GM/60ML SUSP PO ONE (04:15)
[2017-12-09] MEDS ORDERED: HYDROcodone-ACET 5/325MG TAB PO PRN (06:45)
[2017-12-09] MEDS ORDERED: ONDANSETRON HCL 4 MG/2 ML VIAL IV PRN (06:45)
[2017-12-09] MEDS ORDERED: DEXTROSE (50%) 50ML SYRG IV PRN (06:45)
[2017-12-09] MEDS ORDERED: TEMAZEPAM 15 MG CAP PO PRN (06:45)
[2017-12-09] MEDS ORDERED: ACETAMINOPHEN 325 MG TAB PO PRN (06:45)
[2017-12-09] MEDS: FUROSEMIDE 20 MG TAB PO SCH ×2 (07:06→18:03)
[2017-12-09] MEDS ORDERED: LOSARTAN POTASSIUM 25 MG TAB PO SCH (10:00)
[2017-12-09] MEDS: amLODIPine BESYLATE 5 MG TAB PO SCH (14:05)
[2017-12-09] MEDS: METOPROLOL SUCCINATE XL 50 MG TAB PO SCH (14:06)
[2017-12-09] MEDS: PANTOPRAZOLE 40 MG TAB PO SCH (14:06)
[2017-12-09] MEDS: ACCU-CHEK COMFORT CURVE STRIP VI SCH (18:00)
[2017-12-09] MEDS: InsuLIN REG 1unit/0.01ml Soln (100units/ml) SC SCH (18:00)
[2017-12-09 22:18] LABS: Hematocrit 37.4 % (36.0-46.0); Hemoglobin 12.2 g/dL (12.2-16.2)
[2017-12-10] MEDS: ACCU-CHEK COMFORT CURVE STRIP VI SCH ×3 (00:02→11:23)
[2017-12-10] MEDS: InsuLIN REG 1unit/0.01ml Soln (100units/ml) SC SCH ×3 (00:02→11:28)
[2017-12-10 05:00] VITALS: BP 160/95
[2017-12-10] MEDS: FUROSEMIDE 20 MG TAB PO SCH (05:40)
[2017-12-10 09:00] VITALS: BP 158/76
[2017-12-10] MEDS: PANTOPRAZOLE 40 MG TAB PO SCH (11:20)
[2017-12-10] MEDS: METOPROLOL SUCCINATE XL 50 MG TAB PO SCH (11:21)
[2017-12-10] MEDS: amLODIPine BESYLATE 5 MG TAB PO SCH (11:22)
[2017-12-10 13:00] VITALS: BP 138/69
[2017-12-10] MEDS ORDERED: LOSARTAN POTASSIUM 25 MG TAB PO SCH (14:00)
[2017-12-10 15:11] VITALS: BP 138/69
== END 2017-12-10 15:50 | disposition home or self-care (01) | DRG 291 ==
LOC: ER 23:18 → TELE 23:19 → TELE-CENTR 12-09 10:43
PROVIDERS: ADMIT Nurse Practitioner; ATTEND Nurse Practitioner
PROC: 30233N1 Transfusion of Nonautologous Red Blood Cells into Peripheral Vein, Percutaneous Approach (ICD-10-PCS; principal; 2017-12-09)
DX: I13.2 Hypertensive heart and chronic kidney disease with heart failure and with stage 5 chronic kidney disease, or end stage renal disease (principal); N18.6 End stage renal disease; N17.9 Acute kidney failure, unspecified; E11.22 Type 2 diabetes mellitus with diabetic chronic kidney disease; E87.5 Hyperkalemia; I50.9 Heart failure, unspecified; I25.10 Atherosclerotic heart disease of native coronary artery without angina pectoris; Z85.3 Personal history of malignant neoplasm of breast; Z82.49 Family history of ischemic heart disease and other diseases of the circulatory system; Z83.3 Family history of diabetes mellitus; Z90.12 Acquired absence of left breast and nipple; Z90.710 Acquired absence of both cervix and uterus; Z90.49 Acquired absence of other specified parts of digestive tract; D63.1 Anemia in chronic kidney disease
CPT/HCPCS: 36415; 36430; 80048; 80053; 82962; 84132; 85014; 85018; 85025; 85610; 85730; 86850; 86900; 86901; 86920; 87081; 93005; J1815; J2405

== ENCOUNTER → 2018-01-18 | Outpatient (CLI) | payer MEDICARE, MEDICAID ==
[2018-01-18 09:57] LABS: Basophils # (auto) 0.1 uL; Basophils % (auto) 0.9 % (0.0-2.0); Hemoglobin 11.9 g/dL (12.2-16.2); Lymphocytes # (auto) 1.5 uL; Mean Corpuscular Hemoglobin 26.3 pg (28.0-32.0); Red Blood Cells 4.52 10^6/uL (4.0-5.20)
[2018-01-18 09:58] LABS: Eosinophils # (auto) 0.3 uL; Eosinophils % (auto) 4.3 % (0.0-7.0); Lymphocytes % (auto) 24.6 % (10.0-50.0); Mean Corpuscular Volume 79.8 fL (80.0-100.0); Monocytes # (auto) 0.8 uL; Monocytes % (auto) 13.9 % (0.0-12.0); Neutrophils # (auto) 3.4 uL; Neutrophils % (auto) 56.3 % (37.0-80.0); Platelet Count (auto) 199 10^3/uL (140-450)
[2018-01-18 10:01] LABS: Red Cell Distribution Width 24.1 % (11.8-14.3)
== END | disposition home or self-care (01) ==
LOC: LAB 09:39
PROVIDERS: ATTEND Family Medicine
DX: I12.9 Hypertensive chronic kidney disease with stage 1 through stage 4 chronic kidney disease, or unspecified chronic kidney disease (principal); E11.22 Type 2 diabetes mellitus with diabetic chronic kidney disease; N18.9 Chronic kidney disease, unspecified; D63.1 Anemia in chronic kidney disease
CPT/HCPCS: 36415; 85025